=== PATIENT | female | born 1990 | race Asian ===

== ENCOUNTER 2018-05-11 14:09 | Emergency (ER) | payer OTHER, BC ==
[2018-05-11 14:20] VITALS: BP 144/107
[2018-05-11] MEDS ORDERED: TETANUS/DIPHTHERIA/PERTUSSIS 0.5 ML SYRINGE IM ONE (14:27)
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
== END 2018-05-11 14:44 | disposition home or self-care (01) ==
LOC: ED 14:09
DX: S61.431A Puncture wound without foreign body of right hand, initial encounter (principal); W26.0XXA Contact with knife, initial encounter; Y93.89 Activity, other specified; Y99.0 Civilian activity done for income or pay; Z23 Encounter for immunization
CPT/HCPCS: 1040M; 90471; 90715; 99282